=== PATIENT | male | born 1940 | race Caucasian/White ===

== ENCOUNTER 2017-05-31 08:27 | Inpatient (IN) | payer MEDICARE, OTHER ==
[~2017-05-31] VITALS: Ht 177.8 cm; Wt 104.5 kg
[2017-05-31] MEDS ORDERED: morphine 4 MG/ML inj SYRINge IV ONE (08:55)
[2017-05-31 09:07] LABS: BASOPHILS % (AUTO) 0.4 % (0-1); EOSINOPHILS # (AUTO) 0.2 X10'3 (0-0.9); EOSINOPHILS % (AUTO) 2.5 % (0-6); HEMATOCRIT 41.2 % (42.0-52.0); HEMOGLOBIN 14.7 g/dl (14.0-17.9); LYMPHOCYTES # (AUTO) 1.8 X10'3 (1.1-4.8); LYMPHOCYTES % (AUTO) 22.2 % (21-51); MEAN CORPUSCULAR HEMOGLOBIN 34.5 PG (27.0-31.0); MEAN CORPUSCULAR HGB CONC 35.6 % (33.0-36.5); MEAN CORPUSCULAR VOLUME 96.9 FL (78-98); MEAN PLATELET VOLUME 9.8 FL (7.4-10.4); MONOCYTES # (AUTO) 0.7 X10'3 (0-0.9); MONOCYTES % (AUTO) 8.1 % (2-12); NEUTROPHILS # (AUTO) 5.4 X10'3 (1.8-7.7); NEUTROPHILS % (AUTO) 66.8 % (42-75); PLATELET COUNT 172 X10'3 (140-440); RED BLOOD COUNT 4.25 X10'6 (4.70-6.10); WHITE BLOOD COUNT 8.1 X10'3 (4.5-11.0)
[2017-05-31] MEDS: nitroGLYCERIN 0.4mg SUBLingual tab SL PRN ×2 (09:28→09:40)
[2017-05-31 09:31] LABS: ALANINE AMINOTRANSFERASE 28 U/L (12-78); ALBUMIN 3.7 G/DL (3.4-5.0); ALKALINE PHOSPHATASE 72 IU/L (46-116); ANION GAP 12 (8-16); ASPARTATE AMINO TRANSFERASE 14 U/L (10-37); BILIRUBIN,TOTAL 0.7 MG/DL (0.1-1.0); BLOOD UREA NITROGEN 20 MG/DL (7-18); BUN/CREATININE RATIO 15.3 (5.4-32.0); CALCIUM 9.3 MG/DL (8.5-10.1); CHLORIDE 101 MMOL/L (99-107); CREATININE 1.31 MG/DL (0.60-1.10); GLUCOSE 179 MG/DL (70-104); POTASSIUM 3.5 MMOL/L (3.5-5.1); SODIUM 140 MMOL/L (135-145); TOTAL CARBON DIOXIDE 27.1 MMOL/L (24-32); TOTAL PROTEIN 7.5 G/DL (6.4-8.2); eGFR 53 ML/MIN
[2017-05-31] MEDS ORDERED: normal saline 1000ML IV soln IVB ONE (10:40)
[2017-05-31] MEDS ORDERED: ondansetron/PF 4mg/2ml inj IV ONE (10:40)
[2017-05-31] MEDS ORDERED: AMLO10TA PO (10:46)
[2017-05-31] MEDS ORDERED: CHLO25TA2 PO (10:46)
[2017-05-31] MEDS ORDERED: ATOR20TA66 PO ×2 (10:46)
[2017-05-31] MEDS ORDERED: OMEP20TA5 PO (10:46)
[2017-05-31] MEDS ORDERED: CLON0.1T PO (10:46)
[2017-05-31] MEDS ORDERED: ALFU10TA PO (10:46)
[2017-05-31] MEDS ORDERED: LOSA50TA3 PO (10:46)
[2017-05-31] MEDS ORDERED: ASPI-611 PO (10:46)
[2017-05-31] MEDS ORDERED: normal saline 1000ml 1,000 ML IV SCH (10:47)
[2017-05-31] MEDS: K and/or MAG REPLACEMENT MC SCH (10:50)
[2017-05-31] MEDS ORDERED: morphine 2 MG/ML inj. syringe IV PRN ×2 (10:50)
[2017-05-31] MEDS ORDERED: magnesium 4gm in 100ml NS 100 ML IV PRN (10:50)
[2017-05-31] MEDS ORDERED: potassium Cl 20 mEq SR tablet PO PRN ×2 (10:50)
[2017-05-31] MEDS ORDERED: magnesium 2GM in 50ml NS 50 ML IV PRN (10:50)
[2017-05-31] MEDS ORDERED: mag hydrox/Alum hydrox/simeth 30ml oral suspension PO PRN (10:50)
[2017-05-31] MEDS ORDERED: HYDROcodone/acetaminophen 10/325mg tab PO PRN (10:50)
[2017-05-31] MEDS ORDERED: magnesium hydroxide 30ml (MOM) UD suspension PO PRN (10:50)
[2017-05-31] MEDS ORDERED: ondansetron/PF 4mg/2ml inj IV PRN (10:50)
[2017-05-31] MEDS ORDERED: magnesium Cl slow-release 64mg tablet PO PRN (10:50)
[2017-05-31] MEDS ORDERED: acetaminophen 325mg tablet PO PRN ×2 (10:50)
[2017-05-31] MEDS ORDERED: potassium Cl 40MEQ/NS 500ml 500 ML IV PRN ×2 (10:50)
[2017-05-31] MEDS ORDERED: nitroGLYCERIN-Tridil 50MG/D5W 250 ML IV ONE (11:06)
[2017-05-31] MEDS ORDERED: fentaNYL/PF 50MCG/1 ML 2ML syringe ONE (11:06)
[2017-05-31] MEDS ORDERED: verapamil 2.5 mg/ml inj IV ONE (11:06)
[2017-05-31] MEDS ORDERED: midazolam 2 mg/2 ml injection ONE (11:06)
[2017-05-31] MEDS ORDERED: iohexol 350MG/ML 100ml bottle IV ONE (11:07)
[2017-05-31] MEDS ORDERED: heparin 1,000unit/ml 10ml vial 10 ML ONE (11:07)
[2017-05-31] MEDS ORDERED: LIDOcaine 1%/PF (10mg/ml) 5ml vial ONE ×2 (11:07→12:02)
[2017-05-31] MEDS: normal saline 1000ml 1,000 ML IV SCH ×3 (13:09→23:05)
[2017-05-31] MEDS ORDERED: OXAZEpam 15mg capsule PO PRN (13:10)
[2017-05-31] MEDS ORDERED: proCHLORperazine 10 MG/2 ml inj IV PRN (13:10)
[2017-05-31 15:00] VITALS: BP 134/71
[2017-05-31 18:00] VITALS: BP 148/74
[2017-05-31] MEDS: docusate sod 100mg capsule PO SCH (19:20)
[2017-05-31] MEDS ORDERED: temazepam 15mg capsule PO PRN (21:00)
[2017-05-31 22:00] VITALS: BP 154/76
[2017-05-31] MEDS: HYDROcodone/acetaminophen 5mg/325mg tablet PO PRN (22:17)
[2017-06-01 02:00] VITALS: BP 135/80
[2017-06-01] MEDS: normal saline 1000ml 1,000 ML IV SCH (05:46)
[2017-06-01 05:58] LABS: BASOPHILS % (AUTO) 0.3 % (0-1); EOSINOPHILS # (AUTO) 0.2 X10'3 (0-0.9); EOSINOPHILS % (AUTO) 2.4 % (0-6); HEMATOCRIT 40.1 % (42.0-52.0); HEMOGLOBIN 14.2 g/dl (14.0-17.9); LYMPHOCYTES # (AUTO) 1.8 X10'3 (1.1-4.8); LYMPHOCYTES % (AUTO) 20.9 % (21-51); MEAN CORPUSCULAR HEMOGLOBIN 34.2 PG (27.0-31.0); MEAN CORPUSCULAR HGB CONC 35.4 % (33.0-36.5); MEAN CORPUSCULAR VOLUME 96.6 FL (78-98); MEAN PLATELET VOLUME 9.9 FL (7.4-10.4); MONOCYTES # (AUTO) 0.9 X10'3 (0-0.9); MONOCYTES % (AUTO) 10.1 % (2-12); NEUTROPHILS # (AUTO) 5.6 X10'3 (1.8-7.7); NEUTROPHILS % (AUTO) 66.3 % (42-75); PLATELET COUNT 156 X10'3 (140-440); RED BLOOD COUNT 4.15 X10'6 (4.70-6.10); RED CELL DISTRIBUTION WIDTH 13.2 % (11.5-14.5); WHITE BLOOD COUNT 8.5 X10'3 (4.5-11.0)
[2017-06-01 06:06] LABS: PROTHROMBIN TIME 10.1 SECONDS (9.0-12.0)
[2017-06-01 06:20] LABS: ALBUMIN 3.5 G/DL (3.4-5.0); ANION GAP 10 (8-16); BLOOD UREA NITROGEN 18 MG/DL (7-18); BUN/CREATININE RATIO 15.8 (5.4-32.0); CALCIUM 8.7 MG/DL (8.5-10.1); CHLORIDE 103 MMOL/L (99-107); CREATININE 1.14 MG/DL (0.60-1.10); GLUCOSE 119 MG/DL (70-104); MAGNESIUM 1.8 MG/DL (1.5-2.4); POTASSIUM 3.9 MMOL/L (3.5-5.1); SODIUM 140 MMOL/L (135-145); TOTAL CARBON DIOXIDE 27.1 MMOL/L (24-32); eGFR 62 ML/MIN
[2017-06-01 07:00] VITALS: BP 185/83
[2017-06-01] MEDS: HYDROcodone/acetaminophen 5mg/325mg tablet PO PRN ×2 (07:38→14:51)
[2017-06-01] MEDS: docusate sod 100mg capsule PO SCH (07:39)
[2017-06-01] MEDS: K and/or MAG REPLACEMENT MC SCH (08:00)
[2017-06-01] MEDS ORDERED: atorvastatin 20mg tablet PO SCH (08:00)
[2017-06-01] MEDS ORDERED: normal saline 1000ml 1,000 ML IV ONE (08:20)
[2017-06-01] MEDS ORDERED: aspirin 81mg tab.chew PO SCH (08:30)
[2017-06-01 11:00] VITALS: BP 177/78
[2017-06-01] MEDS ORDERED: iohexol 300mg/ml 100ml inj. ONE (12:08)
[2017-06-01] MEDS ORDERED: HYDR-565 PO (15:39)
[2017-06-01] MEDS ORDERED: cloNIDine 0.1 mg tablet PO SCH (20:00)
[2017-06-01] MEDS ORDERED: tamsulosin 0.4mg capsule PO SCH (21:00)
[2017-06-02] MEDS ORDERED: alfuzosin 10MG TAB.SR.24H PO SCH (08:00)
[2017-06-02] MEDS ORDERED: losartan 50mg tablet PO SCH (08:00)
[2017-06-02] MEDS ORDERED: amLODIPine 5mg tablet PO SCH (08:00)
[2017-06-02] MEDS ORDERED: non-formulary drug (Amlodipine Besylate 1 TABLET) PO SCH (08:00)
[2017-06-02] MEDS ORDERED: chlorthalidone 25mg tablet PO SCH (08:00)
== END 2017-06-01 18:25 | disposition home or self-care (01) | DRG 287 ==
LOC: ER 08:27 → ED HOLD 10:47 → PCU 3S 12:40
PROVIDERS: ADMIT Internal Medicine; ATTEND Internal Medicine
PROC: 4A023N7 Measurement of Cardiac Sampling and Pressure, Left Heart, Percutaneous Approach (ICD-10-PCS; principal; 2017-05-31)
PROC: B2111ZZ Fluoroscopy of Multiple Coronary Arteries using Low Osmolar Contrast (ICD-10-PCS; 2017-05-31)
PROC: B2151ZZ Fluoroscopy of Left Heart using Low Osmolar Contrast (ICD-10-PCS; 2017-05-31)
PROC: B41F1ZZ Fluoroscopy of Right Lower Extremity Arteries using Low Osmolar Contrast (ICD-10-PCS; 2017-05-31)
DX: I25.110 Atherosclerotic heart disease of native coronary artery with unstable angina pectoris (principal); E11.22 Type 2 diabetes mellitus with diabetic chronic kidney disease; C34.12 Malignant neoplasm of upper lobe, left bronchus or lung; J44.9 Chronic obstructive pulmonary disease, unspecified; G47.33 Obstructive sleep apnea (adult) (pediatric); I12.9 Hypertensive chronic kidney disease with stage 1 through stage 4 chronic kidney disease, or unspecified chronic kidney disease; N18.9 Chronic kidney disease, unspecified; E78.00 Pure hypercholesterolemia, unspecified; E78.5 Hyperlipidemia, unspecified; K21.9 Gastro-esophageal reflux disease without esophagitis; N40.0 Benign prostatic hyperplasia without lower urinary tract symptoms; Z95.0 Presence of cardiac pacemaker; Z88.8 Allergy status to other drugs, medicaments and biological substances; Z79.899 Other long term (current) drug therapy; Z79.82 Long term (current) use of aspirin; Z87.891 Personal history of nicotine dependence
CPT/HCPCS: 36415; 70491; 71045; 80048; 80053; 83735; 83880; 84484; 85025; 85610; 87070; 93005; 93458; 96374; 99152; 99153; 99285; A4620; A6257; A6258; C1769; J1644; J2001; J2250; J2270; J2405; J3010; J3490; J7030; Q9967

== ENCOUNTER 2019-02-21 07:06 | Emergency (ER) | payer MEDICARE, OTHER ==
[~2019-02-21] VITALS: Ht 170.2 cm; Wt 88.6 kg
[~2019-02-21 07:06] MED LIST: ALFU10TA PO; AMLO10TA PO; ASPI-611 PO; ATOR20TA66 PO; CHLO25TA2 PO; CLON0.1T PO; LOSA50TA3 PO; OMEP20TA5 PO
[2019-02-21] MEDS ORDERED: ketorolac tromethamine 15mg/ml inj. IV ONE (07:55)
[2019-02-21] MEDS ORDERED: normal saline 1000ML IV soln IVB ONE (07:55)
[2019-02-21] MEDS ORDERED: pantoprazole 40 MG vial IV ONE (07:55)
[2019-02-21 08:02] LABS: BASOPHILS % (AUTO) 0.6 % (0-1); EOSINOPHILS # (AUTO) 0.2 X10'3 (0-0.9); EOSINOPHILS % (AUTO) 2.4 % (0-6); HEMATOCRIT 46.3 % (42.0-52.0); LYMPHOCYTES # (AUTO) 1.3 X10'3 (1.1-4.8); LYMPHOCYTES % (AUTO) 16.9 % (21-51); MEAN CORPUSCULAR HEMOGLOBIN 37.1 PG (27.0-31.0); MEAN CORPUSCULAR HGB CONC 34.6 g/dL (33.0-36.5); MONOCYTES # (AUTO) 0.9 X10'3 (0-0.9); MONOCYTES % (AUTO) 12.2 % (2-12); NEUTROPHILS # (AUTO) 5.2 X10'3 (1.8-7.7); NEUTROPHILS % (AUTO) 67.9 % (42-75); PLATELET COUNT 163 X10'3 (140-440); RED BLOOD COUNT 4.33 X10'6 (4.70-6.10); RED CELL DISTRIBUTION WIDTH 12.9 % (11.5-14.5); WHITE BLOOD COUNT 7.6 X10'3 (4.5-11.0)
[2019-02-21 08:18] LABS: ALANINE AMINOTRANSFERASE 20 U/L (12-78); ALBUMIN 3.4 G/DL (3.4-5.0); ALKALINE PHOSPHATASE 90 IU/L (46-116); ANION GAP 10 (8-16); ASPARTATE AMINO TRANSFERASE 16 U/L (10-37); BILIRUBIN,TOTAL 1.2 MG/DL (0.1-1.0); BLOOD UREA NITROGEN 17 MG/DL (7-18); BUN/CREATININE RATIO 15.3 (5.4-32.0); CALCIUM 9.4 MG/DL (8.5-10.1); CHLORIDE 100 MMOL/L (99-107); CREATININE 1.11 MG/DL (0.60-1.10); GLUCOSE 110 MG/DL (70-104); SODIUM 137 MMOL/L (135-145); TOTAL CARBON DIOXIDE 26.9 MMOL/L (24-32); TOTAL PROTEIN 6.9 G/DL (6.4-8.2); eGFR 64 ML/MIN
[2019-02-21 10:57] VITALS: BP 146/84
== END 2019-02-21 11:06 | disposition home or self-care (01) ==
LOC: ER 07:07
DX: G89.29 Other chronic pain (principal); R07.9 Chest pain, unspecified; I25.10 Atherosclerotic heart disease of native coronary artery without angina pectoris; I10 Essential (primary) hypertension; E11.9 Type 2 diabetes mellitus without complications; G47.30 Sleep apnea, unspecified; Z88.8 Allergy status to other drugs, medicaments and biological substances; Z79.899 Other long term (current) drug therapy; Z79.82 Long term (current) use of aspirin; Z87.891 Personal history of nicotine dependence; Z95.0 Presence of cardiac pacemaker
CPT/HCPCS: 36415; 71045; 76700; 80053; 84484; 85025; 93005; 96374; 96375; 99284; C9113; J1885; J7040